=== PATIENT | male | born 1980 | race Caucasian/White ===

== ENCOUNTER 2017-02-03 05:29 | Observation (INO) | payer MEDICARE, OTHER ==
--- NOTE | 2017-02-03 05:43 | PDOC ---
History of Present Illness - General History Source: EMS Exam Limitations: Intoxication - History of Present Illness Initial Comments: 02/03/17 06:28 The patient is a 36-year-old male with unknown significant past medical history , and presents to the emergency department via EMS with alcohol intoxication tonight. As per EMS, a bouncer at a nightclub found the patient very drunk, and called the brand manager. The brand manager called EMS, who states the patient had multiple episodes of nonbloody nonbilious vomiting. The patient is unresponsive, so the history is limited to the EMS report. No fever or diarrhea. <Dionne Salcedo - Last Filed: 02/03/17 06:43> <Esha Whitney - Last Filed: 02/03/17 22:23> - General Stated Complaint: INTOX Time Seen by Provider: 02/03/17 05:34 Past History <Dionne Salcedo - Last Filed: 02/03/17 06:43> <Esha Whitney - Last Filed: 02/03/17 22:23> - Past Medical History Allergies/Adverse Reactions: Allergies Allergy/AdvReac Type Severity Reaction Status Date / Time No Known Allergies Allergy Verified 02/03/17 06:30 Home Medications: Ambulatory Orders NK [No Known Home Medication] 02/03/17 Review of Systems - Review of Systems Able to Perform ROS?: No (ETOH intoxication) <Dionne Salcedo - Last Filed: 02/03/17 06:43> *Physical Exam - Physical Exam Comments: 02/03/17 06:43 GENERAL: Well developed, well nourished. No acute distress. HEENT: Normocephalic, atraumatic. PERRLA, EOMI. No conjunctival pallor. Sclera are non- icteric. Moist mucous membranes. Oropharynx is clear. NECK: Supple. Full ROM. No JVD. Carotid pulses 2+ and symmetric, without bruits. No thyromegaly. No lymphadenopathy. CARDIOVASCULAR: Regular rate and rhythm. No murmurs, rubs, or gallops. Distal pulses are 2+ and symmetric. PULMONARY: No evidence of respiratory distress. Lungs clear to auscultation bilaterally. No wheezing, rales or rhonchi. ABDOMINAL: Soft. Non-tender. Non-distended. No rebound or guarding. No organomegaly. Normoactive bowel sounds. MUSCULOSKELETAL Normal range of motion at all joints. No bony deformities or tenderness. No CVA tenderness. EXTREMITIES: No cyanosis. No clubbing. No edema. No calf tenderness. SKIN: Dry. Normal capillary refill. No rashes. No jaundice. NEUROLOGICAL: (+) No forced gaze. (+) Slight nystagmus. (+) Responded to voice. (+) Pupils dilated. Cranial nerves 2-12 intact. No deficits to light touch and temperature in face, upper extremities and lower extremities. No motor deficits in the in face, upper extremities and lower extremities. Normoreflexic in the upper and lower extremities. Toes are down-going bilaterally. PSYCHIATRIC: Cooperative. Good eye contact. Appropriate mood and affect. <Dionne Salcedo - Last Filed: 02/03/17 06:43> ED Treatment Course - LABORATORY CBC & Chemistry Diagram: 02/03/17 06:12 02/03/17 06:12 <Dionne Salcedo - Last Filed: 02/03/17 06:43> - LABORATORY CBC & Chemistry Diagram: 02/03/17 16:14 02/03/17 12:20 <Esha Whitney - Last Filed: 02/03/17 22:23> Medical Decision Making - Medical Decision Making 02/03/17 06:59 Pt was found by PD outside of a bar/club. Bouncers called PD. PD called EMS and EMS ayana pt to the ER. Unclear if pt is just drunk with alcohol, or intoxicated on drugs. He vomited all over self and he is now slightly responsive to voice. 02/03/17 07:04 Pt's labs were diluted/hemolyzed. We sent a second set. UTOX sent, alcohol level pending. Pt is getting hydrated and although he is still intox, he has a normal physical exam. Heart lungs and abd and flank normal. HEENT normal, reflexes equal throughout. 02/03/17 07:06 Pt will be signed out to the day attending <Esha Whitney - Last Filed: 02/03/17 22:23> *DC/Admit/Observation/Transfer - Attestations Scribe Attestion: 02/03/17 06:29 Documentation prepared by Dionne Salcedo, acting as medical coding auditor for Esha Whitney MD. <Dionne Salcedo - Last Filed: 02/03/17 06:43> <Esha Whitney - Last Filed: 02/03/17 22:23> Diagnosis at time of Disposition: Episode of unresponsiveness, Alcohol intoxication, Leukocytosis, Hypothermia - Discharge Dispostion Disposition: HOME Condition at time of disposition: Good - Referrals
[2017-02-03] MEDS ORDERED: NALOXONE HCL 0.4 MG/ML VIAL ONE (05:46)
[2017-02-03] MEDS ORDERED: SODIUM CHLORIDE 0.9% 500 ML INFUS.BAG IV ONE ×2 (05:55→13:37)
[2017-02-03] MEDS ORDERED: METOCLOPRAMIDE HCL INJECTION 10 MG/2 ML VIAL IVPB ONE (06:05)
[2017-02-03 06:26] LABS: URINE APPEARANCE CLEAR; URINE BILIRUBIN NEGATIVE (NEGATIVE); URINE COLOR STRAW; URINE GLUCOSE (UA) NEGATIVE (NEGATIVE); URINE KETONE NEGATIVE (NEGATIVE); URINE LEUK ESTERASE NEGATIVE (NEGATIVE); URINE NITRITE NEGATIVE (NEGATIVE); URINE PROTEIN NEGATIVE (NEGATIVE); URINE UROBILINOGEN NEGATIVE E.U./dl (0.2-1.0)
[2017-02-03 06:31] LABS: URINE BLOOD 1+ (NEGATIVE)
[2017-02-03 06:34] LABS: URINE BACTERIA RARE /hpf (NONE SEEN); URINE MUCUS RARE; URINE RBC <1 /hpf (0-3); URINE WBC 1 /hpf (3-5)
[2017-02-03] MEDS ORDERED: NALOXONE HCL 0.4 MG/ML VIAL IVPUSH ONE (06:50)
[2017-02-03 07:08] LABS: BASOPHIL 0.4 % (0-2.0); EOSINOPHIL 0.2 % (0-4.5); MCHC 34.1 g/dl (32.0-35.9); MEAN CELL VOLUME 87.9 fl (80-96); MEAN PLT VOLUME 8.9 fl (7.5-11.1); NEUTROPHILS 87.5 % (42.8-82.8); PLATELET COUNT 133 K/MM3 (134-434); RDW 12.3 % (11.9-15.9); WHITE BLOOD COUNT 14.6 K/mm3 (4.0-10.0)
[2017-02-03 07:27] LABS: URINE MARIJUANA THC NEGATIVE ng/ml (CUTOFF=50)
[2017-02-03 07:36] LABS: ALBUMIN 3.6 g/dl (3.4-5.0); ALK PHOS 71 U/L (45-117); AMYLASE 48 U/L (25-115); ANION GAP 15 (8-16); BILIRUBIN,TOTAL 1.2 mg/dL (0.2-1.0); CALCIUM 7.7 mg/dL (8.5-10.1); CO2 20 mmol/L (21-32); COCKROFT - GAULT 110; CREATININE 0.8 mg/dL (0.7-1.3); GLUCOSE,RANDOM 139 mg/dL (74-106); SGOT/AST 19 U/L (15-37); SGPT/ALT 32 U/L (12-78); TOT PROT 6.4 g/dl (6.4-8.2)
[2017-02-03] MEDS ORDERED: FOLIC ACID INJECTION - 1 MG, THIAMINE HCL 100 MG, MULTIVIT INJECTION ADULT 10 ML in SOD... IVPB ONE (08:04)
--- NOTE | 2017-02-03 08:08 | PDOC ---
*Physical Exam - Vital Signs Last Vital Signs Temp Pulse Resp BP Pulse Ox 96.3 F L 82 20 101/58 96 02/03/17 05:29 02/03/17 07:08 02/03/17 07:08 02/03/17 07:08 02/03/17 07:08 - Physical Exam Comments: 02/03/17 08:06 SIGN IN Sign-out received from outgoing Emergency Physician Pt interviewed and examined Ancillary studies reviewed The patient is a 36-year-old male with unknown significant past medical history , and presents to the emergency department via EMS with alcohol intoxication tonight. As per EMS, a bouncer at a nightclub found the patient very drunk, and called the excel vba developer. The excel vba developer called EMS, who states the patient had multiple episodes of nonbloody nonbilious vomiting. The patient is unresponsive, so the history is limited to the EMS report. Patient is lethargic but starting to awaken, and does not remember what happened to him last night Labwork reviewed Laboratory Results - last 24 hr 02/03/17 02/03/17 02/03/17 06:12 06:12 06:12 WBC Cancelled Corrected WBC (auto) Cancelled RBC Cancelled Hgb Cancelled Hct Cancelled MCV Cancelled MCHC Cancelled RDW Cancelled Plt Count Cancelled MPV Cancelled Add Manual Diff Cancelled Neutrophils % Cancelled Lymphocytes % Cancelled Monocytes % Cancelled Eosinophils % Cancelled Basophils % Cancelled Differential Comment Cancelled Smudge Cells Cancelled Platelet Estimate Cancelled Platelet Comment Cancelled Normal RBC Morphology Cancelled RBC Morphology Cancelled Sodium Cancelled Potassium Cancelled Chloride Cancelled Carbon Dioxide Cancelled Anion Gap Cancelled BUN Cancelled Creatinine Cancelled Creat Clearance w eGFR Cancelled Random Glucose Cancelled Calcium Cancelled Total Bilirubin Cancelled AST Cancelled ALT Cancelled Alkaline Phosphatase Cancelled Total Protein Cancelled Albumin Cancelled Total Amylase Cancelled Lipase Cancelled Urine Color Urine Appearance Urine pH Ur Specific [place] Urine Protein Urine Glucose (UA) Urine Ketones Urine Blood Urine Nitrite Urine Bilirubin Urine Urobilinogen Ur Leukocyte Esterase Urine RBC Urine WBC Ur Epithelial Cells Urine Bacteria Urine Mucus Opiates Screen Methadone Screen Barbiturate Screen Phencyclidine Screen Ur Amphetamines Screen MDMA (Ecstasy) Screen Benzodiazepines Screen Cocaine Screen U Marijuana (THC) Screen Alcohol, Quantitative Cancelled 02/03/17 02/03/17 02/03/17 06:15 06:40 06:54 WBC 14.6 H Corrected WBC (auto) RBC 4.93 Hgb 14.8 Hct 43.3 MCV 87.9 MCHC 34.1 RDW 12.3 Plt Count 133 L MPV 8.9 Add Manual Diff Neutrophils % 87.5 H Lymphocytes % 8.2 Monocytes % 3.7 L Eosinophils % 0.2 Basophils % 0.4 Differential Comment Smudge Cells Platelet Estimate Platelet Comment Normal RBC Morphology RBC Morphology Sodium Potassium Chloride Carbon Dioxide Anion Gap BUN Creatinine Creat Clearance w eGFR Random Glucose Calcium Total Bilirubin AST ALT Alkaline Phosphatase Total Protein Albumin Total Amylase Lipase Urine Color Straw Urine Appearance Clear Urine pH 6.0 Ur Specific [place] 1.011 Urine Protein Negative Urine Glucose (UA) Negative Urine Ketones Negative Urine Blood 1+ H Urine Nitrite Negative Urine Bilirubin Negative Urine Urobilinogen Negative Ur Leukocyte Esterase Negative Urine RBC <1 Urine WBC 1 Ur Epithelial Cells Rare Urine Bacteria Rare Urine Mucus Rare Opiates Screen Negative Methadone Screen Negative Barbiturate Screen Negative Phencyclidine Screen Negative Ur Amphetamines Screen Negative MDMA (Ecstasy) Screen Negative Benzodiazepines Screen Negative Cocaine Screen Negative U Marijuana (THC) Screen Negative Alcohol, Quantitative 02/03/17 02/03/17 06:54 06:54 WBC Corrected WBC (auto) RBC Hgb Hct MCV MCHC RDW Plt Count MPV Add Manual Diff Neutrophils % Lymphocytes % Monocytes % Eosinophils % Basophils % Differential Comment Smudge Cells Platelet Estimate Platelet Comment Normal RBC Morphology RBC Morphology Sodium 141 Potassium 3.2 L Chloride 106 Carbon Dioxide 20 L Anion Gap 15 BUN 15 Creatinine 0.8 Creat Clearance w eGFR > 60 Random Glucose 139 H Calcium 7.7 L Total Bilirubin 1.2 H AST 19 ALT 32 Alkaline Phosphatase 71 Total Protein 6.4 Albumin 3.6 Total Amylase 48 Lipase 104 Urine Color Urine Appearance Urine pH Ur Specific [place] Urine Protein Urine Glucose (UA) Urine Ketones Urine Blood Urine Nitrite Urine Bilirubin Urine Urobilinogen Ur Leukocyte Esterase Urine RBC Urine WBC Ur Epithelial Cells Urine Bacteria Urine Mucus Opiates Screen Methadone Screen Barbiturate Screen Phencyclidine Screen Ur Amphetamines Screen MDMA (Ecstasy) Screen Benzodiazepines Screen Cocaine Screen U Marijuana (THC) Screen Alcohol, Quantitative 259.0 H* Alcohol level 259 White count elevated with left shift Calcium 7.7, with an albumin of 3.6-corrected calcium 8.0 Magnesium was ordered by me Banana bag was ordered by me CT head and portable chest ordered by me-awaiting results 02/03/17 08:56 Magnesium 2.0 02/03/17 09:44 CT scan of the C-spine No fracture is identified Multilevel DJD is noted, as well as central canal stenosis CT scan of the head without No CT evidence of acute intracranial pathology Sinus changes as noted, mucosal thickening consistent with chronic or subacute sinusitis 02/03/17 10:39 Patient is now much more awake and alert He admits to doing "some drinking" last night, but denies any drugs He states that he's had a recent URI, and some sinus infection type symptoms 02/03/17 12:18 EKG Normal sinus rhythm 95, normal axis Normal AV and IV conduction time Normal QTC Normal EKG Chest x-ray- Poor inspiration Central crowding Question atelectasis at the left base Patient's is here She states that the patient went out to "have a few drinks with his friend" last night, and then she doesn't know what happened to him Patient has no recall at all what happened to him Patient's states that he has been having a bit of cough and a little chest pain for the past few days First set of cardiac enzymes negative Case and all results discussed with hospitalist-Will place in observation ED Treatment Course - LABORATORY CBC & Chemistry Diagram: 02/03/17 06:54 02/03/17 06:54 - ADDITIONAL ORDERS Additional order review: Laboratory Results 02/03/17 02/03/17 02/03/17 06:54 06:54 06:40 Sodium 141 Potassium 3.2 L Chloride 106 Carbon Dioxide 20 L Anion Gap 15 BUN 15 Creatinine 0.8 Creat Clearance w eGFR > 60 Random Glucose 139 H Calcium 7.7 L Total Bilirubin 1.2 H AST 19 ALT 32 Alkaline Phosphatase 71 Total Protein 6.4 Albumin 3.6 Total Amylase 48 Lipase 104 Urine Color Urine Appearance Urine pH Ur Specific [place] Urine Protein Urine Glucose (UA) Urine Ketones Urine Blood Urine Nitrite Urine Bilirubin Urine Urobilinogen Ur Leukocyte Esterase Urine RBC Urine WBC Ur Epithelial Cells Urine Bacteria Urine Mucus Opiates Screen Negative Methadone Screen Negative Barbiturate Screen Negative Phencyclidine Screen Negative Ur Amphetamines Screen Negative MDMA (Ecstasy) Screen Negative Benzodiazepines Screen Negative Cocaine Screen Negative U Marijuana (THC) Screen Negative Alcohol, Quantitative 259.0 H* 02/03/17 02/03/17 02/03/17 06:15 06:12 06:12 Sodium Cancelled Potassium Cancelled Chloride Cancelled Carbon Dioxide Cancelled Anion Gap Cancelled BUN Cancelled Creatinine Cancelled Creat Clearance w eGFR Cancelled Random Glucose Cancelled Calcium Cancelled Total Bilirubin Cancelled AST Cancelled ALT Cancelled Alkaline Phosphatase Cancelled Total Protein Cancelled Albumin Cancelled Total Amylase Cancelled Lipase Cancelled Urine Color Straw Urine Appearance Clear Urine pH 6.0 Ur Specific [place] 1.011 Urine Protein Negative Urine Glucose (UA) Negative Urine Ketones Negative Urine Blood 1+ H Urine Nitrite Negative Urine Bilirubin Negative Urine Urobilinogen Negative Ur Leukocyte Esterase Negative Urine RBC <1 Urine WBC 1 Ur Epithelial Cells Rare Urine Bacteria Rare Urine Mucus Rare Opiates Screen Methadone Screen Barbiturate Screen Phencyclidine Screen Ur Amphetamines Screen MDMA (Ecstasy) Screen Benzodiazepines Screen Cocaine Screen U Marijuana (THC) Screen Alcohol, Quantitative Cancelled 02/03/17 02/03/17 06:54 06:12 RBC 4.93 Cancelled MCV 87.9 Cancelled MCHC 34.1 Cancelled RDW 12.3 Cancelled MPV 8.9 Cancelled Neutrophils % 87.5 H Cancelled Lymphocytes % 8.2 Cancelled Monocytes % 3.7 L Cancelled Eosinophils % 0.2 Cancelled Basophils % 0.4 Cancelled - RADIOLOGY Radiology Studies Ordered: Category Date Time Status CERVICAL SPINE CT W/O CONTR [CT] Stat CT Scan 02/03/17 07:[address] WITHOUT CONTRAST [CT] Stat CT Scan 02/03/17 07:29 Ordered CHEST X-RAY PORTABLE* [RAD] Stat Radiology 02/03/17 08:05 Ordered - Medications Given in the ED: ED Medications Discontinued Medications Generic Name Dose Route Start Last Admin Trade Name Warren PRN Reason Stop Dose Admin Metoclopramide HCl 10 mg 02/03/17 06:05 02/03/17 06:29 Reglan Injection - IVPB 02/03/17 06:06 10 mg ONCE ONE Administration Naloxone HCl 0.4 mg 02/03/17 06:50 02/03/17 06:56 Narcan - IVPUSH 02/03/17 06:51 0.4 mg ONCE ONE Administration Sodium Chloride 1,000 ml 02/03/17 05:55 02/03/17 06:29 Normal Saline - IV 02/03/17 05:56 1,000 ml ONCE ONE Administration *DC/Admit/Observation/Transfer Diagnosis at time of Disposition: Episode of unresponsiveness, Alcoholic intoxication, Leukocytosis, Hypothermia - Discharge Dispostion Admit: Yes - Referrals - Patient Instructions - Post Discharge Activity
[2017-02-03] MEDS ORDERED: POTASSIUM CHLORIDE TABS 20 MEQ TABLET.ER (FP) PO ONE ×2 (11:32→11:48)
[2017-02-03 12:54] LABS: TROPONIN I < 0.02 ng/ml (0.00-0.05)
--- NOTE | 2017-02-03 13:10 | HP ---
CHIEF COMPLAINT: " i got too drunk" PCP: Dr Samuel HISTORY OF PRESENT ILLNESS: This is a healthy 36 yo M with PMH of mild asthma, who presents to ED after unresponsiveness following a night of binge drinking. He only drinks once a moth and drank more than usual last night. he doesnt remember the events but per his friends, he drank a bottle of liquor in a night club, had several episodes of NBNB vomiting and then "blacked out". He was still unresponsive when EMS brought him to hospital with blood alcohol of 259. He did not respond to narcan but received IVF and eventually woke up and gradually regained baseline mental status. He denies doing drugs or daily EtOH use. He reports ome mild URI/allergy symptoms a few days ago including runny nose and cough but denies taking any medications for it. He Has mild asthma for which he occasionally uses his daughters inhaler. He was afebrile, not hypothermic, slightly tachycardic on arrival to ED. EKG unremarkable. Head/c spine CT and CXR unremarkable He currently has a h/a, feels thirsty and a little dizzy. He denies chest pain, palpitations, n/v, and pain, diarrhea, dysuria, tremors, anxiety, diaphoresis. 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 , kids Smoking: denies Alcohol: once a month Drugs: denies Family History: asthma Allergies No Known Allergies Allergy (Verified 02/03/17 06:30) HOME MEDICATIONS: Home Medications Medication Instructions Recorded NK [No Known Home Medication] 02/03/17 REVIEW OF SYSTEMS CONSTITUTIONAL: Absent: fever, chills, generalized weakness, malaise, loss of appetite, weight change HEENT: Absent: rdifficulty swallowing, visual changes CARDIOVASCULAR: Absent: chest pain, syncope, palpitations RESPIRATORY: Absent: cough, shortness of breath, dyspnea with exertion, orthopnea, wheezing, stridor, hemoptysis GASTROINTESTINAL: Absent: abdominal pain, abdominal distension, nausea, vomiting, diarrhea, constipation GENITOURINARY: Absent: dysuria, MUSCULOSKELETAL: Absent: myalgia, arthralgia, SKIN: Absent: rash, itching, pallor HEMATOLOGIC/IMMUNOLOGIC: Absent: easy bleeding, easy bruising ENDOCRINE: Absent: unexplained weight gain, unexplained weight loss, heat intolerance, cold intolerance NEUROLOGIC: Absent: headache, focal weakness or paresthesias, unsteady gait, seizure, bladder or bowel incontinence PSYCHIATRIC: Absent: anxiety, depression, hallucinations PHYSICAL EXAMINATION GENERAL: Awake, alert, and fully oriented, in no acute distress. HEAD: Normal with no signs of trauma. EYES: Pupils equal, round and reactive to light, extraocular movements intact, sclera anicteric, conjunctiva clear. No lid lag. EARS, NOSE, THROAT: Moist mucous membranes. NECK: supple without lymphadenopathy, JVD, or masses. LUNGS: Breath sounds equal, clear to auscultation bilaterally. HEART: tacy, Regular rhythm, normal S1 and S2 ABDOMEN: Soft, nontender, not distended, normoactive bowel sounds MUSCULOSKELETAL: No CVA tenderness. UPPER EXTREMITIES: 2+ pulses, warm, well-perfused. No cyanosis. No clubbing. No peripheral edema. LOWER EXTREMITIES: 2+ pulses, warm, well-perfused. No calf tenderness. No peripheral edema. NEUROLOGICAL: Cranial nerves II-XII grossly intact. Normal speech. PSYCHIATRIC: Cooperative. Good eye contact. Appropriate mood and affect. SKIN: Warm, dry ASSESSMENT/PLAN: This is a healthy 36 yo M with PMH of mild asthma, who presents to ED after unresponsiveness following a night of binge drinking. Unresponsiveness due to acute EtOh intoxication -resolved -CAGE 0, not a daily drinker, does not qualify for librium detox -leukocytosis reactional to vomiting. -no aspiration cxr -CT head, cervical spine unremarkable -EKG unremarkable -s/p Banana bag, folate, K -administer further IVF -tylenol PRN h/a -repeat cmp Asthma -stable FEN -NS liter bolus -hypokalemia repleted -regular diet -ppx not indicated Dispo: stable for al home. Problem List - Problem (1) Alcohol intoxication Code(s): F10.129 - ALCOHOL ABUSE WITH INTOXICATION, UNSPECIFIED (2) Episode of unresponsiveness Code(s): R41.89 - OTH SYMPTOMS AND SIGNS W COGNITIVE FUNCTIONS AND AWARENESS (3) Leukocytosis Code(s): D72.829 - ELEVATED WHITE BLOOD CELL COUNT, UNSPECIFIED (4) Asthma Code(s): J45.909 - UNSPECIFIED ASTHMA, UNCOMPLICATED Visit type - Emergency Visit Emergency Visit: Yes ED Registration Date: 02/03/17 Care time: The patient presented to the Emergency Department on the above date and was hospitalized for further evaluation of their emergent condition. - New Patient This patient is new to me today: Yes Date on this admission: 02/03/17 - Critical Care Critical Care patient: No
[2017-02-03] MEDS ORDERED: ACETAMINOPHEN 325 MG TABLET (FP) PO PRN (13:47)
--- NOTE | 2017-02-03 14:10 | PN ---
Teaching Attending Note Name of Resident: Joyce Arce ATTENDING PHYSICIAN STATEMENT I saw and evaluated the patient. I reviewed the resident's note and discussed the case with the resident. I agree with the resident's findings and plan as documented. SUBJECTIVE: 36 yo M with h/o asthma presents unresponsive after night of drinking. Patient states that he rarely drinks. He went out with friends and took a few shots, before being given a bottle of liquor which he drank directly from. He does not recall the subsequent events, but per friends and EMS, it appears that he vomited, passed out and was kicked out of the club. He was found unresponsive outside and brought to the ED. In the ED temp 96.3. WBC was 14. BAL was 259. He was given IVF and a banana bag. Over the next few hours he returned to baseline. OBJECTIVE: Gen: NAD HEENT: oropharynx clear cor: regular, mild tachy resp: clear abd: soft ext: no c/c/e neuro: no focal defecits, no tremor psych: normal affect labs, EKG and imaging reviewed ASSESSMENT AND PLAN: 36 yo M with h/o asthma presents unresponsive after night of drinking and found to have WBC of 14 and BAL of 259. Presenation consistent with EtOH intoxication and BAL of 259 consistent with this. WBC is likely stress response. Will repeat. Will give additional IVF for mild tachycardia. IF patient stable after IVF and repeat labs, he may be discharged.
[2017-02-03 15:48] VITALS: BMI 22.5
[2017-02-03 15:59] LABS: ALBUMIN 3.5 g/dl (3.4-5.0); ANION GAP 11 (8-16); BILIRUBIN,TOTAL 1.1 mg/dL (0.2-1.0); CALCIUM 7.5 mg/dL (8.5-10.1); CO2 21 mmol/L (21-32); COCKROFT - GAULT 109.94; CREATININE 0.7 mg/dL (0.7-1.3); GLUCOSE,RANDOM 96 mg/dL (74-106); MAGNESIUM 1.7 mg/dL (1.8-2.4); PHOSPHOROUS 3.3 mg/dL (2.5-4.9); SGOT/AST 15 U/L (15-37); SGPT/ALT 28 U/L (12-78); TOT PROT 6.1 g/dl (6.4-8.2)
[2017-02-03 16:00] LABS: ALK PHOS 65 U/L (45-117)
[2017-02-03 16:18] LABS: MCH 29.2 pg (25.7-33.7); MCHC 33.6 g/dl (32.0-35.9); MEAN CELL VOLUME 86.8 fl (80-96); MEAN PLT VOLUME 9.5 fl (7.5-11.1); PLATELET COUNT 162 K/MM3 (134-434); RDW 12.4 % (11.9-15.9); WHITE BLOOD COUNT 12.8 K/mm3 (4.0-10.0)
[2017-02-03] MEDS ORDERED: MAGNESIUM SULF 50% (8.12 MEQ/2 ML-1 GM VIAL) IVPB ONE (16:20)
--- NOTE | 2017-02-03 17:13 | DS ---
Physical Exam: SUBJECTIVE: Patient seen and examined Resting in bed NAD. afebrile and hemodynamically stable. feels well OBJECTIVE: Vital Signs Period Temp Pulse Resp BP Sys/Maya Pulse Ox Last 24 Hr 97.7 F-98.1 F 82-102 18-20 105-117/55-66 96-98 PHYSICAL EXAM GENERAL: Awake, alert, and fully oriented, in no acute distress. HEAD: Normal with no signs of trauma. EYES: Pupils equal, round and reactive to light, extraocular movements intact, sclera anicteric, conjunctiva clear. No lid lag. EARS, NOSE, THROAT: Moist mucous membranes. NECK: supple without lymphadenopathy, JVD, or masses. LUNGS: Breath sounds equal, clear to auscultation bilaterally. HEART: tacy, Regular rhythm, normal S1 and S2 ABDOMEN: Soft, nontender, not distended, normoactive bowel sounds MUSCULOSKELETAL: No CVA tenderness. UPPER EXTREMITIES: 2+ pulses, warm, well-perfused. No cyanosis. No clubbing. No peripheral edema. LOWER EXTREMITIES: 2+ pulses, warm, well-perfused. No calf tenderness. No peripheral edema. NEUROLOGICAL: Cranial nerves II-XII grossly intact. Normal speech. PSYCHIATRIC: Cooperative. Good eye contact. Appropriate mood and affect. SKIN: Warm, dry. LABS Laboratory Results - last 24 hr 02/03/17 16:14 WBC 12.8 H RBC 4.95 Hgb 14.4 Hct 42.9 MCV 86.8 MCHC 33.6 RDW 12.4 Plt Count 162 D MPV 9.5 HOSPITAL COURSE: Date of Admission:02/03/17 This is a healthy 36 yo M with PMH of mild asthma, who presents to ED after unresponsiveness following a night of binge drinking. He only drinks once a moth and drank more than usual last night. he doesnt remember the events but per his friends, he drank a bottle of liquor in a night club, had several episodes of NBNB vomiting and then "blacked out". He was still unresponsive when EMS brought him to hospital with blood alcohol of 259. He did not respond to narcan but received IVF and eventually woke up and gradually regained baseline mental status. He denies doing drugs or daily EtOH use. He reports ome mild URI/allergy symptoms a few days ago including runny nose and cough but denies taking any medications for it. He Has mild asthma for which he occasionally uses his daughters inhaler. He was afebrile, not hypothermic, slightly tachycardic on arrival to ED. EKG unremarkable. Head/c spine CT and CXR unremarkable. Patient did not qualify for detox because he is not a regular drinker and was observed due to alcohol intoxication. Patient returned to normal mental status aaox3, felt well s/p IVF, folate, potassium, mag, reglan and tylenol. reactive wbc trended down and he was discharged home. Date of Discharge: 02/03/17 Minutes to complete discharge: 45 (na) Discharge Summary Reason For Visit: UNRESPONSIVENESS EPISODE Current Active Problems Alcohol intoxication (Acute) Asthma (Acute) Episode of unresponsiveness (Acute) Hypothermia (Acute) Leukocytosis (Acute) Condition: Good - Instructions Diet, Activity, Other Instructions: you were in the hospital because of an episode of unresponsiveness. This occurred due to alcohol intoxication. Please avoid excessive drinking. Drink plenty of water. Follow up with your primary care doctor to check your heart rate in 1 week. Return to hospital if severe symptoms occur. Referrals: Edward Lieberman MD [Primary Care Provider] - 1 Week Disposition: HOME - Home Medications Comprehensive Discharge Medication List: Ambulatory Orders NK [No Known Home Medication] 02/03/17 Problem List - Problems (1) Alcohol intoxication Code(s): F10.129 - ALCOHOL ABUSE WITH INTOXICATION, UNSPECIFIED (2) Episode of unresponsiveness Code(s): R41.89 - OTH SYMPTOMS AND SIGNS W COGNITIVE FUNCTIONS AND AWARENESS (3) Leukocytosis Code(s): D72.829 - ELEVATED WHITE BLOOD CELL COUNT, UNSPECIFIED (4) Asthma Code(s): J45.909 - UNSPECIFIED ASTHMA, UNCOMPLICATED This patient is new to me today: Yes Date on this admission: 02/03/17 Emergency Visit: Yes ED Registration Date: 02/03/17 Care time: The patient presented to the Emergency Department on the above date and was hospitalized for further evaluation of their emergent condition. Critical Care patient: No - Discharge Referral Referred to [facility] Med P.C[facility] No
[2017-02-03 18:26] VITALS: BP 132/77; PULSE 100; TEMP 98
--- NOTE | 2017-02-04 00:08 | EKG ---
Test Reason : Blood Pressure : / mmHG Vent. Rate : 095 BPM Atrial Rate : 095 BPM P-R Int : 126 ms QRS Dur : 082 ms QT Int : 360 ms P-R-T Axes : 066 075 044 degrees QTc Int : 452 ms NORMAL SINUS RHYTHM NORMAL ECG WHEN COMPARED WITH ECG OF 01-FEB-2001 15:07, ST NO LONGER ELEVATED IN ANTERIOR LEADS Confirmed by INDY HERNANDEZ MD ([id number]) on 02/04/2017 12:07:51 AM Referred By: Confirmed By:INDY HERNANDEZ MD
== END 2017-02-03 18:22 | disposition home or self-care (01) ==
LOC: JER 05:29 → JERBED 12:20 → J5S 15:13
PROVIDERS: ADMIT Internal Medicine; ATTEND Internal Medicine
PROC: 3E033GC Introduction of Other Therapeutic Substance into Peripheral Vein, Percutaneous Approach (ICD-10-PCS; principal; 2017-02-03)
PROC: 3E0337Z Introduction of Electrolytic and Water Balance Substance into Peripheral Vein, Percutaneous Approach (ICD-10-PCS; 2017-02-03)
DX: F10.129 Alcohol abuse with intoxication, unspecified (principal); R41.89 Other symptoms and signs involving cognitive functions and awareness; D72.829 Elevated white blood cell count, unspecified; T68.XXXA Hypothermia, initial encounter; X31.XXXA Exposure to excessive natural cold, initial encounter; Y90.8 Blood alcohol level of 240 mg/100 ml or more; J45.909 Unspecified asthma, uncomplicated
CPT/HCPCS: 36415; 70450-TC; 71010-TC; 72125-TC; 80053; 80307; 81003; 81015; 82150; 82550; 82553; 83690; 83735; 84100; 84484; 85025; 85027; 93005; 93010; 99285-25; G0378